=== PATIENT | male | born 1945 | race Caucasian/White ===

== ENCOUNTER → 2016-12-31 | Outpatient (CLI) | payer OTHER ==
[~2016-12-31] VITALS: Ht 170.2 cm; Wt 112.5 kg
[~2016-12-31] MED LIST: ADVAIR 250/501 DISK IH; ALLOPURINOL300 MG PO; ALPRAZOLAM0.25 M2 PO; ALPRAZOLAM0.25 MG PO; AMARYL1 MG PO; BAL B-501 EACH PO; BENADRYL25 MG PO; BISACODYL5 MG PO; COLCRYS0.6 MG PO; COUMADIN,JANTOV10 MG PO; COUMADIN,JANTOVE4 MG PO; COUMADIN1 MG PO; COUMADIN10 MG PO; COUMADIN2 MG PO; COUMADIN6 MG PO; COUMADIN7.5 MG PO; DELTASONE20 M1 PO; DELTASONE20 MG PO; DIGOX125 MCG PO; DIGOX250 MCG PO; DUONEB 2.5-0.5 M3 ML IH; EXCEDRIN MIGRA1 EAC3 PO; FOLIC ACID1 MG PO; Folvite PO; HYDROCODON-ACE1 EA11 PO; HYDRODIURIL,O12.5 M2 PO; IRON325 M1 PO; JANTOVEN2 MG PO; LANOXIN,DIGIT0.25 MG PO; LEVAQUIN500 MG PO; LEVAQUIN750 MG PO; LIDOCAINE700 MG TD; LIPITOR40 MG PO; LISINOPRIL PO; MEDROL DOSEPAK4 MG PO; METRONIDAZOLE500 MG PO; MICROZIDE12.5 M1 PO; MILK OF MAGNESI10 ML PO; MIRALAX255 GM PO; MUCINEX600 MG PO; NIASPAN,SLO-NI500 MG PO; OXYCODONE HCL10 MG PO; OXYCODONE HCL5 MG PO; OXYCONTIN10 MG PO; OXYCONTIN15 MG PO; OXYCONTIN20 MG PO; PREDNISONE10 MG PO; PROAIR HFA8.5 GM IH; PROVENTIL,2.5 MG/0.5 IH; SPIRIVA1 INHALATI IH; SYMBICORT60 INHALAT IH; THIAMINE,VITAM100 MG PO; TYLENOL REGULA325 MG PO; VERAPAMIL HCL120 M1 PO; VERAPAMIL PO; WARFARIN PO; ZESTORETIC 20-1 EAC2 PO; ZOFRAN4 MG PO; ZYLOPRIM300 MG PO; ZYRTEC10 M1 PO; ZYRTEC10 M2 PO; Zyloprim PO
[2016-12-31 10:19] LABS: POINT-OF-CARE METER ID UU14174212
[2016-12-31 10:26] LABS: INTER. NORMALIZED RATIO 1.1; PROTHROMBIN TIME 12.4 SEC (10.2-12.9)
[2016-12-31 10:29] LABS: PTT 31.9 SEC (25-37)
[2016-12-31 10:43] LABS: ANION GAP 11 MEQ/L (2-14); CHLORIDE 97 MEQ/L (99-109); SAMPLE HEMOLYSIS CHECK 0; SAMPLE ICTERIC CHECK 0; SAMPLE LIPEMIA CHECK 0; SODIUM 139 MEQ/L (136-147)
[2016-12-31 10:48] LABS: GFR ESTIMATE (CALCULATED) > 59 mL/min/; GLUCOSE 120 mg/dL (70-99); UREA NITROGEN (BUN) 18 mg/dL (9-23)
[2016-12-31 12:29] LABS: POINT-OF-CARE METER ID UU13113819; POINT-OF-CARE USER ID ADMSLT55
== END | disposition home or self-care (01) ==
LOC: AMB 09:46
PROVIDERS: Internal Medicine Gastroenterology
PROC: 0DJD8ZZ Inspection of Lower Intestinal Tract, Via Natural or Artificial Opening Endoscopic (ICD-10-PCS; principal; 2016-12-31)
DX: K57.30 Diverticulosis of large intestine without perforation or abscess without bleeding (principal); Q43.8 Other specified congenital malformations of intestine; Z86.010 Personal history of colon polyps; J44.9 Chronic obstructive pulmonary disease, unspecified; Z99.81 Dependence on supplemental oxygen; I48.91 Unspecified atrial fibrillation; Z79.01 Long term (current) use of anticoagulants; E11.9 Type 2 diabetes mellitus without complications; I10 Essential (primary) hypertension; D64.89 Other specified anemias; E78.00 Pure hypercholesterolemia, unspecified; G47.30 Sleep apnea, unspecified; Z85.828 Personal history of other malignant neoplasm of skin; Z87.891 Personal history of nicotine dependence
CPT/HCPCS: 80048; 82948; 85610; 85730; J2250; J3010